=== PATIENT | male | born 1975 | race Hispanic/Latino ===

== ENCOUNTER 2021-12-12 23:47 | Emergency (ER) | payer MEDICAID ==
[~2021-12-12] VITALS: Ht 175.3 cm; Wt 83.9 kg
[2021-12-12 23:55] VITALS: BP 125/74
[2021-12-13] MEDS ORDERED: DEXA6TAB7 PO (00:46)
[2021-12-13] MEDS ORDERED: PHEN177S29 PO (00:46)
[2021-12-13] MEDS: DEXAMETHASONE 4 MG TAB PO SCH (00:54)
[2021-12-13] MEDS ORDERED: LIDOCAINE HCL 2% VISCOUS 15 ML UDCUP PO ONE (01:00)
[2021-12-13] MEDS ORDERED: MAG/ALUM/SIMETH 30 ML UDCUP PO ONE (01:00)
== END 2021-12-13 01:06 | disposition home or self-care (01) ==
LOC: EDH 23:47
DX: K21.9 Gastro-esophageal reflux disease without esophagitis (principal); J02.9 Acute pharyngitis, unspecified; Z20.822 Contact with and (suspected) exposure to COVID-19; Z98.890 Other specified postprocedural states
CPT/HCPCS: 87635; 87804 ×2; 87880; 99284; C9803; J8540

== ENCOUNTER 2022-01-02 02:30 | Emergency (ER) | payer MEDICAID ==
[~2022-01-02] VITALS: Ht 175.3 cm; Wt 85.3 kg
[~2022-01-02 02:30] MED LIST: DEXA6TAB7 PO; PHEN177S29 PO
[2022-01-02 02:31] VITALS: BP 115/79
== END 2022-01-02 04:46 | disposition home or self-care (01) ==
LOC: EDH 02:30
DX: Z20.822 Contact with and (suspected) exposure to COVID-19 (principal); Z98.890 Other specified postprocedural states; Z79.899 Other long term (current) drug therapy
CPT/HCPCS: 99283; 87635; C9803

== ENCOUNTER → 2022-10-26 | Outpatient (CLI) | payer MEDICAID | END | disposition home or self-care (01) | LOC: RAH 08:43 | PROVIDERS: ATTEND Family Medicine | DX: K21.9 Gastro-esophageal reflux disease without esophagitis (principal); K44.9 Diaphragmatic hernia without obstruction or gangrene | CPT/HCPCS: 74240 ==